=== PATIENT | female | born 1990 ===

== ENCOUNTER 2023-08-31 19:20 | Emergency (ER) | payer MEDICAID ==
[2023-08-31] MEDS: Sodium Chloride 0.9% 1,000 ML IV ONE (19:51)
[2023-08-31] MEDS: Ondansetron 4 MG/2 ML SDV IVPUSH PRN (19:54)
[2023-08-31] MEDS: HYDROmorphone 1 MG/ML Syringe IVPUSH ONE (19:55)
[2023-08-31 19:58] LABS: BASOPHILS ABSOLUTE AUTO 0.05 10^3/uL (0.00-0.50); BASOPHILS PERCENT AUTO 0.3 % (0-1); EOSINOPHILS ABSOLUTE AUTO 0.16 10^3/uL (0.00-1.50); HEMATOCRIT 38.6 % (37.0-47.0); HEMOGLOBIN 11.5 g/dL (12.0-16.0); IMMATURE GRAN ABSOLUTE AUTO 0.04 10^3/uL (0.00-0.49); IMMATURE GRAN PERCENT AUTO 0.2 % (0.0-4.9); LYMPHOCYTES ABSOLUTE AUTO 4.08 10^3/uL (0.60-5.00); LYMPHOCYTES PERCENT AUTO 25.3 % (24-44); MEAN CORPUSCULAR HGB CONC 29.8 g/dL (32.0-36.0); MONOCYTES ABSOLUTE AUTO 1.33 10^3/uL (0.00-1.50); MONOCYTES PERCENT AUTO 8.3 % (0-10); NEUTROPHILS ABSOLUTE AUTO 10.45 x10^3/uL (1.80-8.00); NEUTROPHILS PERCENT AUTO 64.9 % (41-71); PLATELET COUNT,PLT 301 10^3/uL (150-400); RED BLOOD CELL COUNT 5.01 x10^6/uL (4.00-5.50); WHITE BLOOD CELL COUNT,WBC 16.1 10^3/uL (4.0-11.0)
[2023-08-31 20:11] LABS: ALANINE AMINOTRANSFERASE,ALT 89 U/L (12-78); ALBUMIN 3.5 g/dL (3.4-5.0); ALKALINE PHOSPHATASE 90 U/L (46-116); ASPARTATE AMNIOTRANSFERASE,AST 83 U/L (15-37); BILIRUBIN TOTAL 0.4 mg/dL (0.0-1.0); BLOOD UREA NITROGEN,BUN 11 mg/dL (7-18); CALCIUM 9.5 mg/dL (8.4-10.1); CARBON DIOXIDE,CO2 26 mmol/L (21-32); CHLORIDE,CL 102 mEq/L (98-106); CREATININE 0.9 mg/dL (0.6-1.0); ESTIMATED GFR 87 mL/min (>=60); GLUCOSE RANDOM 116 mg/dL (75-99); MAGNESIUM 1.8 mg/dL (1.8-2.4); POTASSIUM,K 3.4 mEq/L (3.5-5.0); PROTEIN TOTAL,TP 8.2 g/dL (6.4-8.2); SODIUM,NA 141 mEq/L (136-145)
[2023-08-31] MEDS: metroNIDAZOLE 500 MG Tab PO ONE (20:24)
[2023-08-31] MEDS: cefTRIAXone 500 MG Vial IVPUSH SCH (20:25)
[2023-08-31] MEDS: Doxycycline Monohydrate 100 MG Cap PO ONE (20:43)
[2023-08-31 20:44] LABS: APPEARANCE,URINE SLIGHTLY CLOUDY (CLEAR); BILIRUBIN,URINE NEGATIVE (NEGATIVE); COLOR,URINE AMBER (YELLOW); GLUCOSE,URINE NEGATIVE (NEGATIVE); KETONES,URINE NEGATIVE (NEGATIVE); LEUKOCYTE ESTERASE,URINE SMALL (NEGATIVE); NITRITE,URINE NEGATIVE (NEGATIVE); OCCULT BLOOD,URINE LARGE (NEGATIVE); PROTEIN,URINE 30 mg/dL (NEGATIVE); UROBILINOGEN,URINE 0.2 EU/dL (0.2-1.0)
[2023-08-31 20:48] LABS: EPITHELIAL CELLS,URINE NOT SEEN /HPF (NOT SEEN); RBC,URINE 20-30 /HPF (0-5); WBC,URINE 0-5 /HPF (0-5)
[2023-08-31 20:49] LABS: BACTERIA,URINE OCCASIONAL /HPF (NOT SEEN); MUCUS,URINE OCCASIONAL /HPF (NOT SEEN)
[2023-08-31 21:01] VITALS: BP 113/77; PULSE 94
[2023-08-31] MEDS: Take Home: metroNIDAZOLE 500 MG Tab, 6 Tab Pack PO ONE (21:17)
[2023-08-31] MEDS: Take Home: Doxycycline 100 MG Cap, 4 Cap Pack PO ONE (21:17)
[2023-08-31] MEDS: Take Home: Acetaminophen/HYDROcodone 325-5 MG, 2 Tab Pack PO ONE (21:17)
[2023-09-03 12:42] LABS: C.TRACHOMATIS BY TMA Negative (Negative); N.GONORRHOEAE BY TMA Negative (Negative); SOURCE URINE
== END 2023-08-31 21:40 | disposition home or self-care (01) ==
LOC: CC.ED 19:20
DX: N73.0 Acute parametritis and pelvic cellulitis (principal); Z79.899 Other long term (current) drug therapy; Z91.09 Other allergy status, other than to drugs and biological substances
CPT/HCPCS: 0352U; 36415; 80053; 81001; 81025; 83605; 83735; 85025; 87040; 87491; 87591; 96361; 96374; 96375; 99284-25; A9270-GY; J0696; J1170; J2405; J7030